=== PATIENT | male | born 1935 | race Caucasian/White ===

== ENCOUNTER 2017-06-16 22:05 | Emergency (ER) | payer OTHER ==
[~2017-06-16] VITALS: Ht 190.5 cm; Wt 84.1 kg
[~2017-06-16 22:05] MED LIST: ASCORBIC ACID500 M3 PO; AUGMENTIN 875-1 EACH PO; CEFTIN500 MG PO; CHERATUSSIN DA473 ML PO; COUMADIN,JANTOVE5 MG PO; COUMADIN5 MG PO; CYANOCOBALAM1000 MCG PO; Coumadin,Jantoven PO; LACTOSE PO; LOPRESSOR25 MG PO; METAMUCIL PACKE1 PKT PO; METAMUCIL SUGA283 GM PO; METFORMIN HCL500 MG PO; MIRALAX17 GM PO; MULTAQ400 MG; MULTAQ400 MG PO; Metamucil Packet PO; Miralax, Glycolax PO; NEXIUM40 MG PO; NORCO 5/3251 TABLET PO; PRAVACHOL40 MG PO; PRAVACHOL80 MG PO; PRAVASTATIN SOD40 MG PO; Pravachol PO; Proventil,Ventolin H IH; Robitussin AC,Tussi- PO; STERAPRED 5 MG U5 MG PO; TOPROL XL50 MG PO; Tessalon Perle PO; VITAMIN D1000 INTUN PO; VITAMIN D32000 UNI1 PO; Vitamin B-12 PO; WARFARIN SODIU2.5 MG PO; Zithromax PO; Zocor PO
[2017-06-17 00:08] VITALS: BP 154/90
== END 2017-06-17 00:12 | disposition home or self-care (01) ==
LOC: EME 22:05
DX: R51 Headache (principal); E11.9 Type 2 diabetes mellitus without complications; Z79.84 Long term (current) use of oral hypoglycemic drugs; I48.91 Unspecified atrial fibrillation; Z79.01 Long term (current) use of anticoagulants
CPT/HCPCS: 70450; 99281; 99284